=== PATIENT | male | born 1955 | race Caucasian/White ===

== ENCOUNTER 2021-12-13 11:07 | Outpatient (CLI) | payer MEDICARE, SELFPAY ==
[2021-12-14 09:21] LABS: HBs Antibody, Quant <3.1 mIU/mL (See Note); Hepatitis B Surface Ab Negative (See Note)
[2021-12-14 09:33] LABS: Hepatitis B Surface Ag Negative (Negative)
[2021-12-14 10:43] LABS: Hep B Core Antibody Negative (Negative)
== END 2021-12-13 11:08 | disposition home or self-care (01) ==
LOC: LBO 11:10
PROVIDERS: PCP Internal Medicine Nephrology; Visit Provider Internal Medicine Nephrology
DX: N18.6 End stage renal disease (principal)
CPT/HCPCS: 36415; 86704; 86706; 87340